=== PATIENT | male | born 1990 | race Caucasian/White ===

== ENCOUNTER 2021-09-12 19:28 | Emergency (ER) | payer MEDICAID ==
[~2021-09-12] VITALS: Ht 188 cm; Wt 84.1 kg
[2021-09-12 19:46] VITALS: BP 102/64
[2021-09-12 20:05] LABS: BASOPHILS # (AUTO) 0.1 X10'3 (0-0.2); BASOPHILS % (AUTO) 0.7 % (0-1); EOSINOPHILS # (AUTO) 0.1 X10'3 (0-0.9); EOSINOPHILS % (AUTO) 1.6 % (0-6); HEMATOCRIT 40.6 % (42.0-52.0); LYMPHOCYTES # (AUTO) 2.3 X10'3 (1.1-4.8); LYMPHOCYTES % (AUTO) 26.2 % (21-51); MEAN CORPUSCULAR HEMOGLOBIN 30.5 PG (27.0-31.0); MEAN CORPUSCULAR HGB CONC 34.4 g/dL (33.0-36.5); MEAN CORPUSCULAR VOLUME 88.8 FL (78-98); MEAN PLATELET VOLUME 7.8 FL (7.4-10.4); MONOCYTES # (AUTO) 0.6 X10'3 (0-0.9); MONOCYTES % (AUTO) 6.8 % (2-12); NEUTROPHILS # (AUTO) 5.7 X10'3 (1.8-7.7); NEUTROPHILS % (AUTO) 64.7 % (42-75); PLATELET COUNT 240 X10'3 (140-440); RED BLOOD COUNT 4.57 X10'6 (4.70-6.10); RED CELL DISTRIBUTION WIDTH 14.8 % (11.5-14.5); WHITE BLOOD COUNT 8.8 X10'3 (4.5-11.0)
[2021-09-12 20:19] LABS: ALANINE AMINOTRANSFERASE 12 U/L (12-78); ALBUMIN 4.1 G/DL (3.4-5.0); ALBUMIN/GLOBULIN RATIO 1.1 (1.1-1.5); ALKALINE PHOSPHATASE 74 IU/L (46-116); ANION GAP 8 (8-16); ASPARTATE AMINO TRANSFERASE 12 U/L (10-37); BILIRUBIN,TOTAL 0.3 MG/DL (0.1-1.0); BLOOD UREA NITROGEN 13 MG/DL (7-18); BUN/CREATININE RATIO 14.4 (5.4-32.0); CALCIUM 9.1 MG/DL (8.5-10.1); CHLORIDE 107 MMOL/L (99-107); GLUCOSE 104 MG/DL (70-104); SODIUM 146 MMOL/L (135-145); TOTAL CARBON DIOXIDE 30.6 MMOL/L (24-32); TOTAL PROTEIN 7.7 G/DL (6.4-8.2); eGFR > 90 ML/MIN
[2021-09-12] MEDS ORDERED: ibuprofen tablet 400 MG TABLET PO ONE (20:35)
== END 2021-09-12 21:43 | disposition home or self-care (01) ==
LOC: ER 19:30
DX: K40.90 Unilateral inguinal hernia, without obstruction or gangrene, not specified as recurrent (principal); Z20.822 Contact with and (suspected) exposure to COVID-19; Z88.8 Allergy status to other drugs, medicaments and biological substances
CPT/HCPCS: 36415; 80053; 85025; 87635; 99284; C9803; 99283

== ENCOUNTER 2021-09-19 21:29 | Emergency (ER) | payer MEDICAID ==
[~2021-09-19] VITALS: Ht 185.4 cm; Wt 84.1 kg
[2021-09-19 22:17] VITALS: BP 103/68
--- NOTE | 2021-09-19 22:23 | NUR ---
Pt is in recovery for opioid addiction and wants to avoid their use if at all possible.
== END 2021-09-19 23:52 | disposition left against medical advice (07) ==
LOC: ER 21:30
DX: R10.30 Lower abdominal pain, unspecified (principal); Z53.21 Procedure and treatment not carried out due to patient leaving prior to being seen by health care provider

== ENCOUNTER 2021-10-12 19:01 | Emergency (ER) | payer MEDICAID ==
[~2021-10-12] VITALS: Ht 185.4 cm; Wt 77.0 kg
[2021-10-12 19:27] VITALS: BP 113/67
--- NOTE | 2021-10-12 19:44 | NUR ---
JANEY CASE NUMBER IS [id number]
--- NOTE | 2021-10-12 20:39 | NUR ---
CLERICAL SUPERVISOR TALKED TO PT.
== END 2021-10-13 01:33 | disposition left against medical advice (07) ==
LOC: ER 19:02
DX: R51.9 Headache, unspecified (principal); H57.12 Ocular pain, left eye; Z53.21 Procedure and treatment not carried out due to patient leaving prior to being seen by health care provider; R07.9 Chest pain, unspecified; R10.9 Unspecified abdominal pain; Y04.8XXA Assault by other bodily force, initial encounter; Y93.89 Activity, other specified; Y92.89 Other specified places as the place of occurrence of the external cause; Y99.8 Other external cause status
CPT/HCPCS: 70450; 70486; 71046